=== PATIENT | male | born 1990 | race Caucasian/White ===

== ENCOUNTER 2019-10-20 11:47 | Outpatient (REF) | payer BC, SELFPAY ==
[2019-10-20 13:31] LABS: TSH (W/Ref FT4) 1.63 uIU/mL (0.36-3.74)
[2019-10-20 14:28] LABS: Vitamin D 25 Total 17.3 ng/ml (30-100)
[2019-10-22 12:37] LABS: Testosterone, Total 471 ng/dL (240-950)
== END 2019-10-20 12:07 ==
LOC: NCHCN 11:47
PROVIDERS: PCP Nurse Practitioner; Visit Provider Nurse Practitioner Family
DX: R53.83 Other fatigue (principal); R68.82 Decreased libido
CPT/HCPCS: 82306; 84403; 84443

== ENCOUNTER 2020-03-16 09:12 | Outpatient (CLI) | payer BC, SELFPAY ==
[2020-03-19 00:18] LABS: SARS-CoV-2 RNA Undetected (Undetected); SARS-CoV-2 Specimen Source Nasopharynx
== END 2020-03-16 09:32 ==
LOC: NCHCO 09:40 → LBO 03-18 08:01
PROVIDERS: PCP Nurse Practitioner; Visit Provider Nurse Practitioner Family
DX: Z11.59 Encounter for screening for other viral diseases (principal)
CPT/HCPCS: U0003

== ENCOUNTER 2020-12-24 18:44 | Outpatient (REF) | payer MEDICAID, SELFPAY ==
[2020-12-24 20:04] LABS: ALT 30 U/L (16-63); AST 18 U/L (15-37); Calculated LDL 159 mg/dL (<100); Cholesterol 248 mg/dL (<200); HDL Cholesterol 43 mg/dL (40-60); Triglyceride 233 mg/dL (<150)
[2020-12-27 05:41] LABS: Vitamin D 25 Total 23.5 ng/mL (30-100)
== END 2020-12-24 18:45 | disposition home or self-care (01) ==
LOC: NCHCN 18:44
PROVIDERS: PCP Nurse Practitioner; Visit Provider Nurse Practitioner Family
DX: Z13.220 Encounter for screening for lipoid disorders (principal); E66.3 Overweight; E55.9 Vitamin D deficiency, unspecified
CPT/HCPCS: 80061; 82306; 84450; 84460

== ENCOUNTER 2021-12-17 20:12 | Emergency (ER) | payer OTHER, SELFPAY ==
[2021-12-17 20:17] VITALS: BP 156/86; PULSE 92; RESP 16; TEMP 36.6; O2SAT 96
--- NOTE | 2021-12-17 20:30 | ED.GENADUL_ITS ---
Discharge Plan Disposition Patient Disposition: HOME Condition: Stable Discharge Details Clinical Impression: Gastroenteritis, Abdominal gas pain Primary Care Provider: Neli Francisco ED Provider: Eva Tracey Home Meds and New Rx's Prescriptions: New dicyclomine 20 mg tablet 20 mg PO TID PRN (Reason: abdominal distention) Qty: 10 0RF Rx Instructions: Take 3 times daily as needed for stomach cramps. Discharge Instructions Instructions: Gastroenteritis (ED), Abdominal Pain (ED) Additional Instructions: The CT today shows no evidence for appendicitis. You do have a large amount of abdominal gas on CT. He also have a little bit of bowel wall thickening. This could be caused by virus and/or inflammation. You may continue taking the simethicone if this helps with the gas pains. Also try the dicyclomine. Clear liquids for the next 1 to 2 days. [place] diet thereafter. Stay away from anything fried, fatty, spicy or dairy. Follow up with primary care provider in 3-5 days. Return to ED sooner if any worsening pain, vomiting, constipation, fever or concerns. Increase oral fluids. Please take Tylenol or Ibuprofen with food every 4-6 hours as needed for pain and swelling. Referrals: Neli Francisco [Primary Care Provider] - 5 days Discharge Data Discharge Date/Time-TO BE ENTERED AT DEPARTURE: 12/17/21 23:56 Medical Decision Making 31-year-old male presents to the ER with chief complaint of mid to right lower abdominal pain which began around 430. He did take some yet simethicone and calcium draq-nwe-kahuxuc tablet and then ate at [facility] suspecting gas which worsened his pain. No significant past medical history. Only surgical history is a vasectomy. Labs are largely unremarkable no leukocytosis., CMP largely within normal limits. No UTI. FINDINGS: Liver: No mass. Gallbladder and bile ducts: No calcified stones. No ductal dilation. Pancreas: No ductal dilation. No masses. Spleen: No splenomegaly or focal lesions. Adrenal glands: No mass. Kidneys and ureters: No renal masses or hydronephrosis bilaterally. Stomach and bowel: Predominantly gas-filled colon. No colitis or significant diverticular disease. Some loops of proximal small bowel demonstrate mild wall thickening however no pathologic dilation or focal transition points. This area is not well assessed due to motion. Appendix: Normal morphology of the appendix. Intraperitoneal space: No free air. No significant fluid collection. Vasculature: No abdominal aortic aneurysm. Lymph nodes: No significantly enlarged lymph nodes. Urinary bladder: Unremarkable as visualized. Reproductive: Unremarkable as visualized. Bones/joints: No acute fracture. Soft tissues: No suspicious lesions. IMPRESSION: No open discitis. A mild proximal enteritis is possible with clinical correlation necessary. Discussed CT results with patient who verbalized understanding. Instructed on attending mechanical expulsion of gas by rubbing belly and rolling back and forth on his abdomen. I also did give him some simethicone and dicyclomine prior to discharge. Discussed strict return instructions and follow-up care. Instructed to follow-up with PCP in 3 to 5 days. This text was generated using [employer] dictation system, please disregard any odd ities of phrase or misspellings. HPI General Mode of arrival: ambulatory . Date/Time Provider Initiated Documentation: 12/17/21 20:27 . Limitations to Documentation: no limitations . Information obtained by: patient, RN notes reviewed and old records reviewed . HPI Narrative: 31-year-old male presents to the ER with chief complaint of mid to right lower abdominal pain which began around 430. He did take some yet simethicone and calcium onlo-abt-wleeeye tablet and then ate at [facility] suspecting gas which worsened his pain. No significant past medical history. Only surgical history is a vasectomy. Related Data Home Medications Medication Instructions Recorded Confirmed dicyclomine 20 mg tablet 20 mg PO TID PRN #10 tab 12/17/21 Previous Rx's Medication Instructions Recorded dicyclomine 20 mg tablet 20 mg PO TID PRN #10 tab 12/17/21 Allergies Allergy/AdvReac Type Severity Reaction Status Date / Time No Known Allergies Allergy Unverified 12/17/21 20:20 General Stated Complaint: Abd Prob TONA: 3 PFSH All Active Problems (Updated 12/17/21 @ 23:29 by Eva Tracey) Elective sterilization (Acute) Gastroenteritis (Acute) Abdominal gas pain (Acute) Social History Smoking/Tobacco Use Status: Current every day Tobacco Type: smokeless tobacco Smoking risk assessment performed?: Yes Alcohol Intake: current Alcohol Intake frequency: 0-2 drinks per day Alcohol type: beer Drug use: Never Do you feel safe at home: Yes Do you feel safe in your relationship?: Yes Course Vital Signs Vital signs: Vital Signs Temperature 36.6 C 12/17/21 20:17 Pulse 92 H 12/17/21 20:17 Respiratory Rate 16 12/17/21 20:17 Blood Pressure 156/86 H 12/17/21 20:17 Pulse Oximetry 96 12/17/21 20:17 Temperature 36.6 C 12/17/21 20:17 Temperature Source Skin 12/17/21 20:17 Pulse 92 H 12/17/21 20:17 Respiratory Rate 16 12/17/21 20:17 Respiratory Effort Non-Labored 12/17/21 20:20 Blood Pressure 156/86 H 12/17/21 20:17 Pulse Oximetry 96 12/17/21 20:17 Pain Level 8 12/17/21 20:17 PAWSS Have you Been Recently Intoxicated or Drunk Within the Last 30 days?: No Have you Ever Experienced Previous Episodes of Alcohol Withdrawal?: No Have you ever Experienced Withdrawal Seizures?: No Have you ever Experienced Delirium Tremens(DT)s?: No Have you ever undergone Alcohol Rehabilitation Treatment (i.e, inpt ot outpatient treatment programs)?: No Have you ever Experienced Blackouts?: No Have you ever Combined Alcohol with other Downers within the last 90 days?: No Have you ever Combined Alcohol with any other Substance of Abuse during the last 90 days?: No Positive Blood Alcohol level on Presentation? [PCS.BAL]: No Evidence of Increased Autonomic Activity (i.e. HR>120, tremor, sweating, agitation, nausea)?: No Result: 0
[2021-12-17 20:57] LABS: Abs Immature Grans 0.02 10^3/uL (0.0-0.06); Absolute Basophil Count 0.05 10^3/uL (0.0-0.2); Absolute Eosinophil Count 0.17 10^3/uL (0.0-0.7); Absolute Lymphocyte Count 1.44 10^3/uL (1.2-3.4); Absolute Neutrophil Count 5.46 10^3/uL (1.2-6.7); Basophils % 0.7; Eosinophils % 2.2; HCT 42.3 % (40.0-50.0); HGB 14.1 g/dL (13.5-17.5); Immature Grans % 0.3; Lymphocytes % 18.8; MCH 28.8 pg (27.0-33.0); MCHC 33.3 % (32.0-36.0); MCV 86.5 fL (80-95); MPV 10.3 fL (8.0-11.0); Monocytes % 6.5; Neutrophils % 71.5; Nucleated RBC 0 %; Platelet Count 262 10^3/uL (130-400); RBC 4.89 10^6/uL (4.36-5.78); RDW 11.7 % (11.8-14.1); RDW-SD 37.2 fL; WBC 7.64 10^3/uL (4.4-10.8)
[2021-12-17 21:03] LABS: Bilirubin Negative (Negative); Blood Negative (Negative); Clarity Clear (Clear); Glucose Negative (Negative); Ketones Negative (Negative); Leukocyte Esterase Negative (Negative); Nitrite Negative (Negative)
[2021-12-17 21:10] LABS: ALT 26 U/L (16-63); AST 14 U/L (15-37); Albumin 3.9 g/dL (3.4-5.0); Alkaline Phosphatase 69 U/L (46-116); Anion Gap 7.1 mmol/L (3-11); BUN 9 mg/dL (7-18); Bilirubin, Total 0.4 mg/dL (0.2-1.0); CO2 28.9 mmol/L (21.0-32.0); Calcium 8.9 mg/dL (8.5-10.1); Chloride 106 mmol/L (98-107); Glucose 107 mg/dL (74-106); Lipase 77 U/L (73-393); Potassium 3.7 mmol/L (3.5-5.1); Sodium 142 mmol/L (136-145); Total Protein 7.3 g/dL (6.4-8.2)
[2021-12-17] MEDS: MORPHine 4 MG/ML SYR IVP (21:18)
[2021-12-17] MEDS: Ondansetron 4 MG/2 ML VIAL IVP (21:19)
--- NOTE | 2021-12-17 21:30 | DI.CT_ITS ---
Exam(s) CT ABDOMEN PELVIS W EXAM: CT ABDOMEN PELVIS W CLINICAL HISTORY: RLQ abd pain. TECHNIQUE: Imaging Protocol: Axial computed tomography images with coronal and sagittal reformatted images were created and reviewed CONTRAST MATERIAL: Intravenous: Omnipaque 350 Contrast volume:100 ml Oral: no COMPARISON: No exams were available for comparison FINDINGS: ABDOMEN: Exam somewhat limited by respiratory motion in the upper abdomen. Lung Bases: Normal where visualized. Liver: Normal density. No measurable mass. Gallbladder and biliary tract: No radiodense calculus or dilation. Pancreas: Normal density, no abnormal calcifications or inflammatory process. Spleen: Normal. Kidneys: Normal size, contour and axis. No radiodense stones or obstructive uropathy. No masses seen. Adrenal glands: No masses seen. Abdominal Aorta: Abdominal portion non-dilated. PELVIS: Bladder: No gross wall thickening. No calculi.No focal mass. Bowel: Proximal small bowel limited evaluation due to motion. Food and fluid seen within the stomach . Colon shows diffuse gaseous distension. Minimal stool. No wall thickening. No obstruction . Sarkis endix normal. Peritoneal cavity: No ascites, collection or mesenteric inflammatory response. Bones: Within normal limits for age. Reproductive organs: Within normal limits. Lymph nodes: Unremarkable. Impression: Colon gas distended without evidence wall thickening. Small bowel unremarkable. Appendix normal. RADIATION DOSE DELIVERED: 868.57mGy.cm Total DLP DATA REPOSITORY: All CT scans at this facility are submitted to the National Radiology Data Registry (NRDR) Dose Index Registry (DIR) with the [employer] (ACR). RADIATION OPTIMIZATION: All CT scans at this facility use at least one of these dose optimization te chniques: automated exposure control; mA and/or kV adjustment per patient size (includes targeted exa ms where dose is matched to clinical indication); or iterative reconstruction.
[2021-12-17] MEDS: Omnipaque 350 MG/ML 100 ML BTL IJ (22:08)
--- NOTE | 2021-12-17 23:06 | DI.VRAD_ITS ---
PROCEDURE INFORMATION: Exam: CT Abdomen And Pelvis With Contrast Exam date and time: 12/17/2021 22:07 Age: 31 years old Clinical indication: Other: Rlq abd pain; Additional info: PT stated symptoms since 1629 today TECHNIQUE: Imaging protocol: Computed tomography of the abdomen and pelvis with contrast. COMPARISON: No relevant prior studies available. FINDINGS: Liver: No mass. Gallbladder and bile ducts: No calcified stones. No ductal dilation. Pancreas: No ductal dilation. No masses. Spleen: No splenomegaly or focal lesions. Adrenal glands: No mass. Kidneys and ureters: No renal masses or hydronephrosis bilaterally. Stomach and bowel: Predominantly gas-filled colon. No colitis or significant diverticular disease. Some loops of proximal small bowel demonstrate mild wall thickening however no pathologic dilation or focal transition points. This area is not well assessed due to motion. Appendix: Normal morphology of the appendix. Intraperitoneal space: No free air. No significant fluid collection. Vasculature: No abdominal aortic aneurysm. Lymph nodes: No significantly enlarged lymph nodes. Urinary bladder: Unremarkable as visualized. Reproductive: Unremarkable as visualized. Bones/joints: No acute fracture. Soft tissues: No suspicious lesions. IMPRESSION: No open discitis. A mild proximal enteritis is possible with clinical correlation necessary. Dictated and Authenticated by: Sonia Tam MD. Ordering:BENSON Velasquez MD
[2021-12-17] MEDS: Dicyclomine 20 MG TAB PO (23:42)
[2021-12-17] MEDS: Simethicone 80 MG CHEW PO (23:42)
[2021-12-17 23:43] VITALS: BP 150/89; PULSE 94; RESP 16; O2SAT 96
== END 2021-12-17 23:56 | disposition home or self-care (01) ==
PROVIDERS: Emergency Provider Registered Nurse Emergency; PCP Nurse Practitioner
DX: K52.9 Noninfective gastroenteritis and colitis, unspecified (principal); R14.0 Abdominal distension (gaseous); R10.31 Right lower quadrant pain
CPT/HCPCS: 80053; 83690; 96374; 96375; 99285; 74177; 81003; 83735; 85025; 99284; J2270; J2405; J3490

== ENCOUNTER 2024-09-30 21:45 | Outpatient (REF) | payer OTHER, SELFPAY ==
--- OUTSIDE RECORDS SUMMARY | 2024-09-30 21:47 | XMS_ITS | Encounter Summary ---
Author Organization [place] [address] Care Team Providers Care Rolls Mill Operator Name Role Phone Unavailable Primary Care Provider Unavailabl e Encounter Details Date Type Department Care Team (Late st Contact Info) Description 02/01/2021 Abstract Dermatology at [address] [phone] Charla Tijerina, RN Social History Tobacco Use Types Packs/Day Years Used Date Smoking Tobacco: Never Assessed Sex and Gender Information Value Date Recorded Sex Assigned at Not on file Gender Identity Not on file Sexual Orientation Not on file documented as of this encounter Plan of Treatment Not on file documented as of this encounter Visit Diagnoses Not on filedocumented in this encounter
--- OUTSIDE RECORDS SUMMARY | 2024-09-30 21:47 | XMS_ITS | Encounter Summary ---
Author Organization [place] [address] Care Team Providers Care Counseling Services Director Name Role Phone Unavailable Primary Care Provider Unavailabl e Encounter Details Date Type Department Care Team ([facility] st Contact Info) Description 02/01/2021 Telephone Dermatology at [address] [phone] Lizzy Taylor MD [address] [place] [address] [place] [address] Social History Tobacco Use Types Packs/Day Years Used Date Smoking Tobacco: Never Assessed Sex and Gender Information Value Date Recorded Sex Assigned at Not on file Gender Identity Not on file Sexual Orientation Not on file documented as of this encounter Miscellaneous Notes * Telephone Encounter - Tatyana Quigley - 02/01/2021 10:25 AM EDT I contacted patient today and left a detailed message confirming 02/02 visit and confirming visit location. I left [phone] for call back if patient has any questions or needs to reschedule his appointment. documented in this encounter Plan of Treatment Not on file documented as of this encounter Visit Diagnoses Not on filedocumented in this encounter
--- OUTSIDE RECORDS SUMMARY | 2024-09-30 21:47 | XMS_ITS | Encounter Summary ---
Author Organization [facility] [place] [address] Care Team Providers Care Jewelry Manager Name Role Phone Unavailable Primary Care Provider Unavailabl e Encounter Details Date Type Department Care Team (Late st Contact Info) Description 02/02/2021 Abstract Dermatology at [address] [phone] Charla Tijerina, RN Social History Tobacco Use Types Packs/Day Years Used Date Smoking Tobacco: Every Day Cigarettes Smokeless Tobacco: Never Sex and Gender Information Value Date Recorded Sex Assigned at Not on file Gender Identity Not on file Sexual Orientation Not on file documented as of this encounter Plan of Treatment Not on file documented as of this encounter Visit Diagnoses Not on filedocumented in this encounter
--- OUTSIDE RECORDS SUMMARY | 2024-09-30 21:47 | XMS_ITS | Clinical Summary ---
Author Organization [facility] [place] [address] Care Team Providers Care Hardware Installation Coordinator Name Role Phone Unavailable Primary Care Provider Unavailabl e Allergies Active Allergy Reactions Criticality Noted Date Comments Cat Dander 02/01/2021 Medications Medication Sig Dispensed Refills Start Date End Date Status Omeprazole Magnesium 10 mg Susp,Delayed Release for Recon Take 10 mg by mouth daily. Active Active Problems Problem Noted Date Diagnosed Date Adjustment disorder with anxiety 02/01/2021 Pain of hand 02/01/2021 Attention deficit hyperactivity disorder (ADHD) 02/01/2021 Cigarette smoker 02/01/2021 Depression with anxiety 02/01/2021 Lower back pain 02/01/2021 Skin lesion 02/01/2021 Overview (02/01/2021): Flaking skin right hoahaoism Vitamin D deficiency 02/01/2021 Heartburn 02/01/2021 Overweight 02/01/2021 Family History Medical History Relation Comments Alcohol Use Disorder Father Heart Disease Father Hyperlipidemia Father Depression Mother Relation Status Comments Father Alive Mother Alive Social History Tobacco Use Types Packs/Day Years Used Date Smoking Tobacco: Every Day Cigarettes Smokeless Tobacco: Never Sex and Gender Information Value Date Recorded Sex Assigned at Not on file Gender Identity Not on file Sexual Orientation Not on file Plan of Treatment Health Maintenance Due Date Last Done Comments HIV screen 2008 Hepatitis C Screening 2008 Lipid Screening 2008 Hepatitis B vaccine (0-59 yrs) (1) 2009 Tetanus/Diphtheria/Pertussis Vaccines (1 - Tdap) 04/19 Covid-19 Vaccine (1 - season) 2024 Influenza (Flu) vaccine (1 o f 1 - Influenza standard series) 05/25/2024
--- OUTSIDE RECORDS SUMMARY | 2024-09-30 21:47 | XMS_ITS | Encounter Summary ---
Author Organization [facility] [place] [address] Care Team Providers Care Lei Seller Name Role Phone Unavailable Primary Care Provider Unavailabl e Reason for Visit * Reason Comments Skin Lesion face * Consultation (Routine) - Closed Specialty Diagnoses / Procedures Referred By Kvng estrada Referred To Contact Dermatology Diagnoses Disorder of the skin and subcutaneous tissue, unspecified Skin Lesion; New Patient-Notes Received Procedures Consult Deepthi Luis APRN [address] [place] [address] Lizzy Taylor MD [address] [place] [id number] Referral ID Status Reason Start Date Expiration Date V isits Requested Visits Authorized [id number] Closed Consult, Test & Treat PCP Updated and/or Approved 12/24/2020 12/24/2021 12 12 Encounter Details Date Type Department Care Team ([facility] st Contact Info) Description 02/02/2021 9:30 AM EDT Office Visit Dermatology at [address] [place] [address] Lizzy Taylor MD [address] [place] [id number] Seborrheic keratoses; Actinic skin damage Social History Tobacco Use Types Packs/Day Years Used Date Smoking Tobacco: Every Day Cigarettes Smokeless Tobacco: Never Sex and Gender Information Value Date Recorded Sex Assigned at Not on file Gender Identity Not on file Sexual Orientation Not on file documented as of this encounter Progress Notes * Lizzy Taylor MD - 02/02/2021 9:30 AM EDT Images from the original note were not included. DERMATOLOGY - NEW PATIENT NOTE Date of service: 02/02/2021 Gomez Dale : 1990, 30 y.o. Chief Complaint: spot on left scientology HPI: Gomez Dale is a 30 y.o. male referred by Deepthi Luis with the following concerns: Spot on left scientology for one year not changing, not symptomatic, never treated. Relevant Skin History: - Skin cancer (including type): denies Family History: Melanoma: denies Relevant Social History: - 1/2 ppd smoker, works for [employer] Meds: Current Outpatient Medications Medication Sig Dispense Refill ??? busPIRone (Buspar) 5 mg Tablet Take 5 mg by mouth 3 times daily. ??? Omeprazole Magnesium 10 mg Susp,Delayed Release for Recon Take 10 mg by mouth daily. No current facility-administered medications for this visit. Allergies: Allergies Allergen Reactions ??? Cat Dander Review of Systems: - General: Feels well. - Skin: No other skin concerns. Examination: - Constitutional: Patient was alert, well-appearing and in no noticeable distress. - Skin: Skin examination of the face, right and left upper extremities, Diagnosis/Skin findings/Assessment/Plan: 1. Seborrheic Keratosis [Verrucous and pebbly, stuck-on alas to brown papules and plaques located on right scientology] - benign, hereditary nature of this condition reviewed, reassurance provided - no treatment indicated at this time - patient instructed to return to clinic if any lesions change or become symptomatic 2. Actinic Skin Damage - chronic illness, stable - sun protection reviewed (broad spectrum sunscreen with SPF30+, sun avoidance, protective UPF clothing) and skin cancer warnings - risks of change discussed, patient reminded to look for new lesions or concerning changes - risk of actinic damage predisposing patient to increased SCC risk discussed with the patient. Significant risks with regards to morbidity and mortality for high risk SCCs reviewed with patent - need for regular skin exams reviewed RTC: PRN Note initiated by Lizzy Taylor MD. Reviewed and signed by Lizzy Taylor MD Department of Dermatology [facility] documented in this encounter Plan of Treatment Not on file documented as of this encounter Visit Diagnoses Diagnosis Seborrheic keratoses Actinic skin damage Other chronic dermatitis due to solar radiation documented in this encounter
--- OUTSIDE RECORDS SUMMARY | 2024-09-30 21:47 | XMS_ITS | Continuity of Care Document ---
Author Name [facility] Organization [facility] Care Team Providers Care System Manager Name Role Phone [facility] Unavailable Unavailable Problems Combined list of problems from Department of Defense and Veterans Affairs facilities. It does not include entries that were removed or entered in error. Problem Status Onset Date Problem Type Date of Resolution Comments Source attention-deficit hyperactivity disorder Active Condition DoD attention-deficit / hyperactivity disorder Active Condition DoD visit for: administrative purpose Active Condition DoD adjustment disorder with anxiety and depressed mood Active Condition DoD depression Active Condition DoD pain in the hands Active Condition DoD common cold Inactive Condition DoD smoking cigarettes Active Condition DoD visit: ears/hearing exam for hearing conservation, treatment Active Condition DoD visit for: services physical accession Active Condition DoD adjustment disorder with anxiety Active Condition DoD ankle sprain Inactive Condition DoD psychiatric diagnosis or condition deferred on axis I Active Condition DoD throat pain Active Condition DoD compression arthralgia - hand Active Condition DoD cough Active Condition DoD nasal discharge Active Condition DoD backache Active Condition DoD lower back pain Active Condition DoD refractive error Active Condition [facility] visit for: services physical Active Condition DoD Need For Vaccination Against Bacterial Diseases Active Condition DoD Need For Vaccination Against Viral Diseases Inactive Condition DoD Vaccines Prophylactic Need Active Condition DoD Need For Vaccination Against Combinations Of Diseases Active Condition [facility] visit for: ears / hearing exam Active Condition [facility] assessment of patient condition work-related Active Condition [facility] visit for: screening exam pulmonary tuberculosis Active Condition DoD limb pain Inactive Condition Pt with likely muscle strain. Reviewed films with radiologist cristopher Horvath as directed. Ice packs after use. F/U PRN. DoD No Known Problems Active Condition [facility] Medications Combined list of outpatient medications from Department of Defense and Veterans Affairs facilities.Medications provided include 1) outpatient medications from the last 15 months, and 2) patient-reported medications. Medication Details Route Status Patient Instructions Prescription Expires Prescription Number Last Dispense Date Ordering Provider Order Date Order Qty Source No Known Medications No Known Medicati ons complet ed Ambulat ory Pharmac y Allergies, Adverse Reactions, Alerts Combined list of allergies from Department of Defense and Veterans Affairs facilities. It does not include entries that were removed or entered in error. Substance Category Reaction Severity Reaction type Status Date Reported Comments Source No Known Allergies Drug allergy (disorder) active 05/26/2005 GAUDENCIO Herman [place] Immunizations Combined list of available immunizations from the Department of Defense and Veterans Affairs facilities. Immunization Series Date Given Administered By Site Reaction Lot Number CVX Code Drug Bi Architect Status Comments Source influenza virus vaccine,split 2009 [id number] 15 Unknown complet ed influenza virus vaccine,s plit 02/03/10 Given Ambulat ory Pharmac y Novel influenza-H1N 1-09, injectable 2009 [id number] 1 127 Novartis Anchovi Labstica ls complet ed Novel influenza -[id number], injectabl e 02/03/10 Given Ambulat ory Pharmac y hepatitis A adult vaccine 2009 [id number] 52 GlaxoSmithKli ne complet ed hepatitis A adult vaccine 02/03/10 Given Ambulat ory Pharmac y meningococcal A,C,Y,W-135 (MCV4P) 2009 [id number] GlaxoSmithKli ne complet ed meningoco ccal A,C,Y,W-1 35 (MCV4P) 02/01/10 Given Ambulat ory Pharmac y tetanus, diphtheria, acellular pertu is 2009 [id number] sanofi pasteur complet ed tetanus, diphtheri a, acellular pertussis 02/01/10 Given Ambulat ory Pharmac y tuberculin purified protein derivative 2009 [id number] 96 GlaxoSmithKli ne complet ed tuberculi n purified protein derivativ e 02/01/10 Given Ambulat ory Pharmac y poliovirus vaccine, inactivated 2009 [id number] 10 sanofi pasteur complet ed polioviru s vaccine, inactivat ed 02/01/10 Given Ambulat ory Pharmac y hepatitis A-hepatitis B vaccine 2008 [id number] 104 GlaxoSmithKli ne complet ed hepatitis A-hepatit is B vaccine 02/08/09 Given Ambulat ory Pharmac y poliovirus vaccine, inactivated 2008 [id number] 10 sanofi pasteur complet ed polioviru s vaccine, inactivat ed 02/08/09 Given Ambulat ory Pharmac y meningococcal A,C,Y,W-135 (MCV4P) 2008 [id number] 114 sanofi pasteur complet ed meningoco ccal A,C,Y,W-1 35 (MCV4P) 02/08/09 Given Ambulat ory Pharmac y tuberculin purified protein derivative 2008 [id number] 96 sanofi pasteur complet ed tuberculi n purified protein derivativ e 02/08/09 Given Ambulat ory Pharmac y tetanus, diphtheria, acellular pertu is 2008 [id number] 115 ArchitizerKli ne complet ed tetanus, diphtheri a, acellular pertussis 02/08/09 Given Ambulat ory Pharmac y measles, mumps and rubella virus vaccine 1 2008 UNK 03 Unknown (UNK) Not Given measles, mumps and rubella virus vaccine DoD poliovirus vaccine, inactivated 1 2008 [id number] 10 Sanofi Pasteur (PMC) complet ed polioviru s vaccine, inactivat ed DoD varicella virus vaccine 1 2008 UNK 21 Unknown (UNK) Not Given varicella virus vaccine DoD hepatitis A and hepatitis B vaccine 1 2008 [id number] [id number] 104 SmithKline (SKB) complet ed hepatitis A and hepatitis B vaccine DoD meningococcal polysaccharid e (groups A, C, Y and W-135) diphtheria toxoid conjugate vaccine (MCV4P) 1 2008 [id number] 114 Sanofi Pasteur (PMC) complet ed meningoco ccal polysacch aride (groups A, C, Y and W-135) diphtheri a toxoid conjugate vaccine (MCV4P) DoD tetanus toxoid, reduced diphtheria toxoid, and acellular pertu is vaccine, adsorbed 1 2008 [id number] 115 Smithine (SKB) complet ed tetanus toxoid, reduced diphtheri a toxoid, and acellular pertussis vaccine, adsorbed DoD Vital Signs Combined list of inpatient and outpatient Vital Signs from Department of Defense and Veterans Affairs, ranging from 12 months to all on record, depending upon the facility. Vital Sign Value Date Comments Source Systolic Blood Pressure 120mm[Hg] 06/06/2024 10:43:00 Ambulatory Pharmacy Diastolic Blood Pressure 82mm[Hg] 06/06/2024 10:43:00 Ambulatory Pharmacy Peripheral Pulse Rate 97bpm 06/06/2024 10:43:00 Ambulatory Pharmacy Encounters Combined list of: 1) Encounters from Department of Veterans Affairs facilities going back up to thelast 18 months. 2) Encounters from the Department of Defense facilities going back up to 280 months. Location Location Details Encounter Type Encounter Number Reason For Visit Attending Provider ADM Date DC Date Status Disposition Source [place], [place](Family Medicine OP Care) OUTPATIENT [id number] JUANPABLO Mcqueen SHANTHI YOU 10/27 Released w/o Limitations [place](Fami ly Medicin e OP Care) [employer](IEP Hearing Conservat ion) OUTPATIENT [id number] NINI DELGADO 02/04 Released w/o Limitations [employer](I EP Hearing Conserv ation) [facility](ROHIT C Post Immunizat ion) OUTPATIENT [id number] IET PPD EDELMIRA JOHNSON 02/05 Released w/o Limitations [facility](M AHC Post Immuniz ation) [facility](ROHIT C Post Immunizat ion) OUTPATIENT [id number] IET IMMUNIZ ATIONS GAURANG SANFORD 02/08 Released w/o Limitations [facility](M AHC Post Immuniz ation) [facility](PES Optometry -Trainee) OUTPATIENT [id number] JIGNESH CLEANING 02/09 Released w/o Limitations [facility](P ES Optomet ry-Enoch nee) [facility] [employer]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[facility]) OUTPATIENT [id number] EVARISTO REAGAN 02/17 Immediate Referral [facility](F [facility] Athleti Tut[place]iler [facility]) [facility] Ambulator y) OUTPATIENT [id number] KENISHA OLMOS 02/17 Released w/o Limitations [facility](T MC Ambulat ory) [facility] Ambulator y) OUTPATIENT [id number] HIREN BRICEÑO 02/18 Immediate Referral [facility](T MC Ambulat ory) [facility] Ambulator y) OUTPATIENT [id number] Right Hand pain ALVA WEBBER 02/27 Released with Work/Duty Limitations [employer](T MC Ambulat ory) [facility] Ambulator y) OUTPATIENT [id number] WILL SEGAL 03/02 Released with Work/Duty Limitations [facility] [facility](T MC Ambulat ory) [place] OUTPATIENT [id number] MED SCREENMULUGETA GARZON 02/01 Released w/o Limitations [place] Optometry ) OUTPATIENT [id number] SHANTHI YEN 02/01 Released w/o Limitations [place] Optomet [place]) OUTPATIENT [id number] hearing test ZBIGNIEWALEENAJamel Jones 02/02 Released w/o Limitations [place] ) [place]) OUTPATIENT [id number] IMM DOMITILA VEGA 02/03 Released w/o Limitations [place] [place] [facility] OUTPATIENT [id number] [facility] S LILIBETH DRAPER S 02/11 Released w/o Limitations [place] [facility] OUTPATIENT [id number] [facility] LILIBETH DRAPER S 02/14 Released w/o Limitations [place] [facility] OUTPATIENT [id number] medical assesme nt ARNIE REINA 03/04 Released w/o Limitations [place] [facility] No Facility Access History [id number] 33875 12/18 No Facilit y Access [facility]ulator [facility] [id number] 12/18 Ambulat ory Pharmac y [address] [place] Outside Documentat ion Only [id number] 12/18 Discharge Disposition: Home or Self Care [address] [place] [address] [place] [facility] [id number] 06/06 Discharge Disposition: Home or Self Care [address] [facility] Procedures Combined list of: 1) Procedures from Department of Veterans Affairs facilities going back up to thelast 18 months, not all VA non-surgical procedures are included; 2) All procedures from the Department of Defense facilities. Procedure Procedure Type Code Date Perfomer Comments Sourbraydon e INCISION AND DRAINAGE OF ABSCESS (EG, CARBUNCLE, SUPPURATIVE HIDRADENITIS, CUTANEOUS OR SUBCUTANEOUS ABSCESS, CYST, FURUNCLE, OR PARONYCHIA); SIMPLE OR SINGLE 005 [facility] ENVIRONMENTAL INTERVENTION FOR MEDICAL MGMT PURPOSES ON A PSYCHIATRIC PATIENT'S BEHALF WITH AGENCIES, EMPLOYERS, OR INSTITUTIONS [facility] ATHLETIC TRAINING EVALUATION [facility] VIS FUNCT SCREEN,AUTOMAT/SE ND-AUTOMAT BILAT QUANT DETERM VISUAL ACUITY,OCULAR ALIGN,COLOR VISION,PSEUDOISOC HROMAT PLATES,& FIELD VIS (MAY INC ALL/SOME SCRN DETERM FOR CONTRAST SENSITIV,VIS UND GLARE) [facility] TETANUS, DIPHTHERIA TOXOIDS AND ACELLULAR PERTUSSIS VACCINE (TDAP), WHEN ADMINISTERED TO INDIVIDUALS 7 YEARS OR OLDER, FOR INTRAMUSCULAR USE [facility] SKIN TEST; TUBERCULOSIS, INTRADERMAL [facility] ANALYSIS OF CLINICAL DATA STORED IN COMPUTERS (EG, ECGS, BLOOD PRESSURES, HEMATOLOGIC DATA) [facility] GROUP PSYCHOTHERAPY (OTHER THAN OF A MULTIPLE-FAMILY GROUP) [facility] GROUP PSYCHOTHERAPY (OTHER THAN OF A MULTIPLE-FAMILY GROUP) [facility] GROUP PSYCHOTHERAPY (OTHER THAN OF A MULTIPLE-FAMILY GROUP) [facility] PREPARATION OF REPORT OF PATIENT'S PSYCHIATRIC STATUS, HISTORY, TREATMENT, OR PROGRESS (OTHER THAN FOR LEGAL OR CONSULTATIVE PURPOSES) FOR OTHER INDIVIDUALS, AGENCIES, OR INSURANCE CARRIERS [facility] GROUP PSYCHOTHERAPY (OTHER THAN OF A MULTIPLE-FAMILY GROUP) [facility] PSYCHIATRIC DIAGNOSTIC INTERVIEW EXAMINATION [facility] SKIN TEST; TUBERCULOSIS, INTRADERMAL [facility] AUDIOMETRIC TESTING OF GROUPS [facility] VIS FUNCT SCREEN,AUTOMAT/SE ND-AUTOMAT BILAT QUANT DETERM VISUAL ACUITY,OCULAR ALIGN,COLOR VISION,PSEUDOISOC HROMAT PLATES,& FIELD VIS (MAY INC ALL/SOME SCRN DETERM FOR CONTRAST SENSITIV,VIS UND GLARE) 010 [facility] Psychotherapy Group Interview Psychotherapy Group Interview [id number] [phone] JOHANNA CHATMAN [facility] Psychotherapy Group Interview Psychotherapy Group Interview [phone] JOHANNA CHATMAN [facility] Psychotherapy Group Interview Psychotherapy Group Interview [id number] JOHANNA CHATMAN [facility] Psychiatric Therapy Preparation of Psychiatric Status Report Psychiatric Therapy Preparation of Psychiatric Status Report [id number] DOMINICK ORELLANA [facility] Psychotherapy Individual Approx 30 Min W/ Medical Evaluation & Management Psychotherapy Individual Approx 30 Min W/ Medical Evaluation & Management [phone] DOMINICK ORELLANA [facility] Psychotherapy Group Interview Psychotherapy Group Interview [phone] NAIDA WALTER [facility] Psychiatric Diagnostic Evaluation Comprehensive Examination Psychiatric Diagnostic Evaluation Comprehensive Examination [id number] JOHANNA CHATMAN [facility] Injection, penicillin G benzathine, up to 1,200,000 units DOMITILA VEGA [facility] Hep A Vac Ped/Adol Dosage (Intramusc Use) 2 Dose Schedule Hep A Vac Ped/Adol Dosage (Intramusc Use) 2 Dose Schedule 02505 DOMITILA VEGA [facility] Vaccines Viral Polio, Inactivated Vaccines Viral Polio, Inactivated 32051 DOMITILA VEGA [facility] Influenza Virus Vaccine Pandemic Formulation Influenza Virus Vaccine Pandemic Formulation 63571 DOMITILA VEGA [facility] Tdap Vaccine Tdap Vaccine 91552 DOMITILA VEGA [facility] Influenza Virus Vaccine Intranasal Live Attenuated DOMITILA VEGA [facility] Influenza Virus Vaccine Pandemic Formulation H1N1 Administration Influenza Virus Vaccine Pandemic Formulation H1N1 Administration 62296 DOMITILA VEGA [facility] Meningococcal Polysaccharide Diphtheria Toxoid Conjugate Vaccine DOMITILA VEGA [facility] Immunization Administration By Injection, Each Additional Vaccine DOMITILA VEGA [facility] Immunization Admin By Intranasal / Oral Route One Vaccine Immunization Admin By Intranasal / Oral Route One Vaccine 54347 DOMITILA VEGA [facility] Physician Supervised Injection Intramuscular Antibiotic Physician Supervised Injection Intramuscular Antibiotic 26837 DOMITILA VEGA [facility] Venipuncture Venipuncture 59995 DOMITILA VEGA [facility] Skin Test Anergy Tuberculin Intradermal Skin Test Anergy Tuberculin Intradermal 75384 DOMITILA VEGA [facility] Audiometry Group Testing Audiometry Group Testing 61509 JUAN COY [facility] Visual Function Screening Visual Function Screening 10308 SHANTHI YEN [facility] Psychiatric Therapy Environmental Intervention Psychiatric Therapy Environmental Intervention 26242 JESÚS JO It was recommended to Command that pt be placed on Wily Watch with no access to sharps; and that cadre dispense meds. [facility] Psychotherapy Individual Approximately 30 Minutes Psychotherapy Individual Approximately 30 Minutes [id number] JESÚS JO Pt seen as an emergency walk-in from 9:00 to 9:30 as an emergency walk-in. [facility] Athletic Training Evaluation Athletic Training Evaluation [phone] EVARISTO REAGAN [facility] Visual Function Screening Visual Function Screening [id number] 009 JIGNESH CLEANING [facility] Tdap Vaccine Tdap Vaccine 74597 [facility] Vaccines Viral Polio, Inactivated Vaccines Viral Polio, Inactivated 62346 [facility] Meningococcal Polysaccharide Diphtheria Toxoid Conjugate Vaccine [facility] Immunization Administration By Injection, Each Additional Vaccine [facility] Hepatitis A And Hepatitis B (Intramuscular Use) Adult Dosage Hepatitis A And Hepatitis B (Intramuscular Use) Adult Dosage 07743 [facility] Immunization Administration By Injection, One Vaccine Immunization Administration By Injection, One Vaccine 73682 [facility] Threshold Audiogram (Pure Tone) Threshold Audiogram (Pure Tone) 05946 NINI DELGADO [facility] Audiometry Group Testing Audiometry Group Testing 34615 NINI DELGADO [facility] Physician Supervised Group Educational Services NINI DELGADO [facility] Special Physician Services Analysis Of Computerized Data Special Physician Services Analysis Of Computerized Data 18463 DANNYNINI [facility] Ear mold/insert, not disposable, any type NINI DELGADO [facility] Ear Protector Attenuation Measurements Ear Protector Attenuation Measurements 03505 DANNYNINI [facility] Skin Test Anergy Tuberculin Intradermal Skin Test Anergy Tuberculin Intradermal 24614 ANANYA ROSEN [facility] Immunization Administration By Injection, One Vaccine Immunization Administration By Injection, One Vaccine 66978 JESSIKAANANYA [facility] No data available for this section Ambul[facility] ry Pharmacy Social History Combined list of available smoking, tobacco, and other social history from Department of Defense and Veterans Affairs facilities. Social History Type Response Date Comment [facility] e This section is an empty social history section. [facility] Tobacco Cigarette use: Former-cigarette user. Average PACKS per day: (10 cigarettes = 0.5 packs) 0.5. Total years of smoking cigarettes: 10. *Total pack years (*reqd for current/former users to complete the Rec. Packs/day times total years) 5. *Stopped cigarettes age (*required for former users to complete the Recommendation) 25 Years. Other Tobacco use: Never-other tobacco user (not cigarettes). Ambulatory Pharmacy Sexual Orientation Ambula tory Pharmacy Gender identity Ambulator y Pharmacy Male Ambulatory Pha rmacy Assessment and Plan Combined list of future care activities from Department of Defense and Veterans Affairs facilities (e.g., assessment and plan notes, appointments, orders, and referrals). Additional future care activities may be listed in the Plan of Care section. Result Assessment and Plan Date Source Assessment and Plan Extracted from:Title : Education Note Author: JONAS ANTHONY Date: 06/06/24 10/01/2024 Ambulatory Pharmacy Functional Status Combined list of recent functional and cognitive assessments recorded at [facility] [place] Functional Chestnut Measurement (FIM) Scale: 1 = Total Assistance (Subject = 0% +), 2 = Maximal Assistance (Subject = 25% +), 3 = Moderate Assistance (Subject = 50% +), 4 = Minimal Assistance (Subject = 75% +), 5 = Supervision, 6 = Modified Chestnut (Device), 7 = Complete Chestnut (Timely, Safely). Assessment Date/Time Source Assessment Type Assessment Skill Assessment Score Assessment Details No data available for this section
--- OUTSIDE RECORDS SUMMARY | 2024-09-30 21:48 | XMS_ITS | Data Portability ---
Author Organization [place] - [facility] [place] [address] Assessment No assessment recorded. Plan of Treatment Reminders Order Date Submit Date Provider Last Modified By Organization Details Last Modified Time Details Appointments Annual Wellness Exam 40 2024 02:20P M JEREMIAH LUIS, Not available Not available Not available Annual Wellness Exam 40 2025 02:20P M JEREMIAH LUIS, Not available Not available Not available Lab None recorded. Referral None recorded. Procedures None recorded. Surgeries None recorded. Imaging None recorded. Medication Orders None recorded. Patient TargetsNo targets recorded. Patient InstructionsNo instructions recorded. Reason for Referral None Reported. Results Created Date Observation Date Name Description Value Unit Range Abnormal Flag Note LastModifiedBy Organization Detail LastModifiedTime 06/09/20 24 12/18/2021 imagi ng/di agnos tic resul t No observ ation record ed. [email or web address] Not Available 06/09 03:51:26 06/09/20 24 12/17/2021 imagi ng/di agnos tic resul t No observ ation record ed. [email or web address] Not Available 06/09 03:51:35 Result Notes None recorded. 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 Problem Code: R51; Problem Code Type: ICD-10; Not Available [facility] 3 05:12:36 Adult health examinat ion Active 201712/29/19 21 - Comments only - Jeremiah RILEY - Gomez is here today for annual exam. He has recently started a new job which is going well. He is up to date on tetanus vaccinat ion. He does not have any concerns but would like his choleste rol checked. Problem Code: Z00.00; Problem Code Type: ICD-10; Not Available [facility] 3 05:12:36 Anxiety 41213144 Active 201712/29/19 21 - Comments only - Jeremiah MADERAP - Stable per patient. Problem Code: F41.8; Problem Code Type: ICD-10; Not Available [facility] 3 05:12:36 Heartbur n 65563885 Active 201712/29/19 21 - Comments only - Jeremiah RILEY - No change made to omeprazo le. Problem Code: R12; Problem Code Type: ICD-10; Not Available [facility] 3 05:12:36 Reduced libido 0084403 Active 2019 Problem Code: R68.82; Problem Code Type: ICD-10; Not Available [facility] 3 05:12:36 Vitamin D deficien cy 87831840 Active 201912/29/19 21 - Comments only - Jeremiah RILEY - Vitamin D recheck at visit. Problem Code: E55.9; Problem Code Type: ICD-10; Not Available [facility] 3 05:12:36 Pain in finger of right hand 40477474046 9109 Active 201905/26/20 20 - Comments only - Daniela Hodges MD - Suspect posttrau matic arthriti s from crush injury. Reassure d no increase d risk of repeat fracture . Trial of heat, ice, OTC analgesi c includin g acetamin ophen up to 1 g 3 times daily. Problem Code: M79.644; Problem Code Type: ICD-10; Not Available [facility] 3 05:12:36 Hyperlip idemia screenin g Active 2020 Problem Code: Z13.220; Problem Code Type: ICD-10; Not Available [facility] 3 05:12:37 [place] ht 635226845 Active 2020 Problem Code: E66.3; Problem Code Type: ICD-10; Not Available [facility] 3 05:12:37 Disorder of skin and/or subcutan eous tissue 54949564 Active 202012/29/19 21 - Comments only - Jeremiah Young STAFFING PROGRAM MANAGER - Dry flaking lesion over the right voodoo. Minimall y concerni ng. Will persue non-bebeto gent evaluati on via dermatol ogy. Problem Code: L98.9; Problem Code Type: ICD-10; Not Available [facility] 3 05:12:37 Depressi ve disorder 07831260 Completed 200806/20/2023 Problem Code: 311; Problem Code Type: ICD-9; Not Available [facility] 3 05:12:43 Steriliz ation procedur e Completed 201711/15/2018 Problem Code: Z30.2; Problem Code Type: ICD-10; Not Available [facility] 3 05:12:45 Elevated blood-pr essure reading without diagnosi s of hyperten madhu 561216942 Completed 201703/13/2019 Problem Code: R03.0; Problem Code Type: ICD-10; Not Available [facility] 3 05:12:45 Major depressi on, single episode 79820117 Completed 200805/23/2018 Problem Code: F32.9; Problem Code Type: ICD-10; Not Available [facility] 3 05:12:49 Pain in thoracic spine 433787283 Completed 201803/13/2019 Problem Code: M54.9; Problem Code Type: ICD-10; Not Available [facility] 3 05:12:54 Pain of right knee joint 21884683069 4100 Completed 201602/27/2017 Problem Code: M25.561; Problem Code Type: ICD-10; Not Available [facility] 3 05:12:55 Tobacco use cessatio n educatio n Completed 201703/13/2019 Problem Code: Z71.6; Problem Code Type: ICD-10; Not Available [facility] 3 05:12:58 Adjustme nt disorder with depresse d mood 28612112 Completed 201706/20/2023 Problem Code: F43.21; Problem Code Type: ICD-10; Not Available [facility] 3 05:12:59 Acute upper respirat ory infectio n 04124135 Completed 201810/16/2019 Problem Code: J06.9; Problem Code Type: ICD-10; Not Available [facility] 3 05:12:59 Fatigue 69349126 Completed 201912/24/2020 Problem Code: R53.83; Problem Code Type: ICD-10; Not Available [facility] 3 05:13:00 Low back pain 454144414 Active 2023 OSVALDO TAVERAS [address], [place], [address] , [facility] 4 09:36:03 Problem Notes None recorded. Procedures Surgical History None recorded. Imaging Results Imaging Date Name Status LastModified by Organiz ation Details LastModified Time 12/18/2021 imaging/diag nostic result completed Information not available 06/09/2024 03:51:26 12/17/2021 imaging/diag nostic result completed Information not available 06/09/2024 03:51:35 Procedure Notes None recorded. Medical Equipment None Reported. Allergies No known drug allergies Medications Name Sig Start Date Stop Date Status Note LastModified by Organization Details LastModified Time buspirone 5 mg tablet TAKE 1 TABLET BY MOUTH EVERY 8 HOURS 05/26 completed Not Available Not Available Not Available Nicoderm CQ 21 mg/24 hr daily transderma l patch Apply 1 patch externall y daily to hairless area. Rotate skin sites 01/17 completed Not Available Not Available Not Available Phenergan 25 mg tablet 1TAB q 6 h 01/14 completed Not Available Not Available Not Available Nicoderm CQ 7 mg/24 hr daily transderma l patch Apply 1 patch externall y daily to hairless area. Rotate skin sites 01/17 completed Not Available Not Available Not Available omeprazole 10 mg capsule,de layed release TAKE 1 CAPSULE BY MOUTH EVERY DAY 03/13 completed Not Available Not Available Not Available IBU 600 mg tablet 1TAB tid 01/14 completed Not Available Not Available Not Available dicyclomin e 20 mg tablet Take 1 tablet by mouth three times a day as needed 3 times a day as needed for stomach cramps 03/13 completed Per ER visit on 2 Not Available Not Available Not Available Nicoderm CQ 14 mg/24 hr daily transderma l patch Apply 1 patch externall y daily to hairless area. Rotate skin sites 01/17 completed Not Available Not Available Not Available Tylenol 500 mg tablet 2TAB 09/30 completed Not Available Not Available Not Available hydroxyzin e HCl 25 mg tablet Take 1-2 tablets by mouth every 6 hours as needed for anxiety. 05/26 completed Not Available Not Available Not Available fluoxetine 20 mg capsule take 1 capsule by mouth once daily 10/15 completed Not Available Not Available Not Available loratadine 10 mg tablet Take 1 tab by mouth daily 03/13 completed Not Available Not Available Not Available nicotine 21mg/24hr- 14mg/24hr- 7mg/24hr daily transderm patches,se quentl Apply 1 patch externall y daily to hairless area. Rotate skin sites 06/05 completed Not Available Not Available Not Available Vitamin D3 25 mcg (1,000 unit) tablet Take 1 by mouth daily. 09/30 completed Not Available Not Available Not Available Wellbutrin XL 150 mg 24 hr tablet, extended release 1 tab daily 02/13 completed Not Available Not Available Not Available Prilosec 10 mg oral suspension ,delayed release 1 packet by mouth daily 2017 active Not Available Not Available Not Avai lable Vitals Date Recorded Body weight Body temperature Oxygen saturation Oxygen saturation in Arterial blood by Pulse oximetry Heart rate Respiratory rate Systolic blood pressure Diastolic blood pressure Provider Name and Address Organization Details Last Updated DateTime 4 64973.5 9 g 98 [degF] 96 % 96 % 73 /min 16 /min 122 mm[Hg] 80 mm[Hg] Evelyn Somers RN [facility] 4 11:35:24 Date Recorded Body temperature Oxygen saturation Oxygen saturation in Arterial blood by Pulse oximetry Heart rate Body weight Body mass index (BMI) Body height Systolic blood pressure Diastolic blood pressure Provider Name and Address Organization Details Last Updated DateTime 5 97.6 [degF] 97 % 97 % 90 /min 22614.6 6 g 27.8 kg/m2 168.91 cm 130 mm[Hg] 86 mm[Hg] Draleen Smith RN [facility] 5 15:26:58 Date Recorded Systolic blood pressure Diastolic blood pressure Provider Name and Address Organization Details Last Updated DateTime 09/30/2024 140 mm[Hg] 90 mm[Hg] OSVALDO TAVERAS [facility] [address], [place], [address], [facility] 09/30/2024 14:46:20 Social History Question Answer Notes LastModified by Organizat ion Details LastModified Time Tobacco Smoking Status Former Smoker Darleen Smith RN null, [facility] 09/30/2024 14:23:02 How Much Tobacco Do You Chew? 1/day Information not available 09/30/2024 Do You Or Have You Ever Used E-cigarettes Or Vape? Current User Of Electronic Cigarettes Information not available 09/30/2024 When Did You Quit Smoking? 6-10yearssince lastcigarette Information not available 09/30/2024 Would You Say That, In General, Your Health Is Good Information not available 09/30/2024 How Often Does Anyone, Including Family, Physically Hurt You? Never Information not available 09/30/2024 How Often Does Anyone, Including Family, Insult Or Talk Down To You? Never Information no t available 09/30/2024 How Often Does Anyone, Including Family, Threaten You With Harm? Never Information not available 09/30/2024 How Often Does Anyone, Including Family, Scream Or Curse At You? Never Information not available 09/30/2024 Within The Past 12 Months, You Worried That Your Food Would Run Out Before You Got Money To Buy More. Never True Information n ot available 09/30/2024 Within The Past 12 Months, The Food You Bought Just Didn't Last And You Didn't Have Money To Get More. Never True Information n ot available 09/30/2024 How Hard Is It For You To Pay For The Very Basics Like Food, Housing, Medical Care, And Heating? Would You Say It Is: Somewhat Hard Information not available 09/30/2024 In The Past 12 Months, Has Lack Of Reliable Transportation Kept You From Medical Appointments, Meetings, Work Or From Getting Things Needed For Daily Living? No Information not available 09/30/2024 What Is Your Housing Situation Today? I Have Housing. Information not available 09/30/2024 How Often In The Past Year Have You Used Marijuana (including Smoking, Vaping, Dabbing, Or Edibles)? Monthly Or Less Information not available 09/30/2024 How Often In The Past Year Have You Used Prescription Medications That Were Not Prescribed To You? Never Information n ot available 09/30/2024 How Often In The Past Year Have You Taken Your Own Prescription Medication More Than The Way It Was Prescribed Or For Different Reasons Than Its Intended Purpose? Never Information no t available 09/30/2024 How Often In The Past Year Have You Used Other Drugs (for Example, Heroin, Cocaine, Meth, Salvia, Inhalants)? Never Information not available 09/30/2024 Have You Ever Used IV Drugs? No Information not available 09/30/2024 Date Of Most Recent SBINS 09/30/2024 Information not available 09/30/2024 What Was The Date Of Your Most Recent Tobacco Screening? 09/30/2024 Information not available 09/30/2024 At What Age Did You Start Smoking Tobacco? 11 Information not available 09/30/2024 Do You Or Have You Ever Used Smokeless Tobacco? Currently Chews Tobacco Information not available 09/30/2024 Has Tobacco Cessation Counseling Been Provided? Yes Information not available 09/30/2024 On What Date Was Tobacco Cessation Counseling Provided? 09/30/2024 Information not available 09/30/2024 Do You Or Have You Ever Used Any Other Forms Of Tobacco Or Nicotine? Yes Information not available 09/30/2024 How Many Years Have You Used E-cigarettes Or Vape? 1 Information not available 09/30/2024 How Many Years Have You Used Smokeless Tobacco? 4 Information n ot available 09/30/2024 Sex: Male Functional Status None recorded. Mental Status None recorded. Family History Relationship Description Onset Age of this Age Resolved Age Notes LastModified by Organization Details LastModified Time Father No family history of respiratory disease [email or web address] Not available 2022 03:57:25 Notes:*Problem: Mother: Aliv e Father: Alive Sisters: 1 Brothers: 2 Children: 3 children Family History of: Hypertension: father Hyperlipidemia: father Coronary heart disease: no Diabetes mellitus: no Colorectal cancer: no Prostate cancer: no Alcoholism: father in recovery , mother Mental illness: mother has depression ; father w/ PTSD Medical History No medical history recorded. Immunizations Vaccine Type Date Status Note Provider Nam e and Address Organization Details Recorded Time Tdap 5 completed Not Available [facility] 08/03/2023 05:14:40 Influenza, split virus, quadrivalent, PF 0 completed Not Available [facility] 08/03/2023 05:14:40 Influenza, split virus, quadrivalent, preservative 8 completed Not Available [facility] 08/03/2023 05:14:41 COVID-19, mRNA, LNP-S, PF, 100 mcg/0.5mL dose or 50 mcg/0.25mL dose 1 completed Not Available [facility] 08/03/2023 05:14:41 COVID-19, mRNA, LNP-S, PF, 100 mcg/0.5mL dose or 50 mcg/0.25mL dose 1 completed Not Available [facility] 08/03/2023 05:14:41 pneumococcal polysaccharide PPV23 8 completed Not Available [facility] 08/03/2023 05:14:42 COVID-19, mRNA, LNP-S, PF, ivis-sucrose, 30 mcg/0.3 mL 5 completed Darleen Smith RN null, [facility] 09/30/2024 15:26:38 Influenza, split virus, trivalent, PF 5 completed Darleen Smith RN null, [facility] 09/30/2024 15:26:38 Tdap 5 completed Darleen Smith RN null, [facility] 09/30/2024 15:28:39 Past Encounters Encounter ID Performer Location Encounter Start Date Encounter Closed Date Diagnosis/Indication Diagnosis SNOMED-CT Code Diagnosis ICD10 Code Diagnosis Note [id number] OSVALDO TAVERAS [address] [address] 03/13/2024 10:48:16 03/13/2024 11:57:45 Low back pain 417375812 M54.50 03/13/2024: Patient has improving low back pain that has been present for 10 days. He can continue the use of ibuprofen and acetaminop hen favoring ibuprofen as it is likely to have more overall benefit. At this time he does not have insurance. PT is likely to be helpful, but likely not realistic due to cost. Recommend stretches and focus on core strengthen ing. No indication for imaging at this time. [id number] [facility] [address] [address] 09/30/2024 14:05:41 09/30/2024 15:31:31 Active or passive immunization 684514298 Z23 Adult heal th examination 075505883 Z00.00 Patient is here today for annual exam: COVID-19 VACCINATIO N: Administer ed today. FLU VACCINATIO N: Administer ed today. TETANUS VACCINATIO N: Administer ed today. COLONOSCOP Y: No known family history of colon cancer to suggest early screening. Vitamin D deficiency 347 32302 E55.9 Health Concerns Section Related Observation LastModified by Organization Detai ls LastModified Time None Recorded Concern Status LastModified by Organization Details LastModified Time None Recorded Advance Directives Directive None Recorded Payers Encounter Date Sequence Insurance Name Policy Number Policy Mcgraw Covered Member ID Mcgraw Member ID Guarantor Name 03/13/2024 1 *SELF PAY* Stan Dale Notes Date Note Type Note Provider Name and Address Organization Details Recorded Time 03/13/2024 text/html Gomez is here fo r lower back pain that started 10 days ago after lifting up on a plow. He states that the pain is improving and isolated to his lower back. He has been taking ibuprofen and acetaminophen with relief from the pain. He denies any bowel or bladder changes. He has no radiculopathy, numbness or tingling, coordination changes or bowel or bladder changes. JEREMIAH LUIS, OSVALDO [address], [place], [address], [facility]. 03/14/2024 09:37:49
[2024-09-30 22:04] LABS: HCT 46.5 % (40.0-50.0); HGB 15.8 g/dL (13.5-17.5); MCH 29.7 pg (27.0-33.0); MCV 87 fL (80-95); MPV 11.1 fL (8.0-11.0); Platelet Count 293 10^3/uL (130-400); RBC 5.32 10^6/uL (4.36-5.78); RDW 11.8 % (11.8-14.1); RDW-SD 37.7 fL; WBC 7.63 10^3/uL (4.4-10.8)
[2024-09-30 22:37] LABS: ALT 22 U/L (16-63); AST 19 U/L (15-37); Albumin 3.8 g/dL (3.4-5.0); Alkaline Phosphatase 75 U/L (46-116); Anion Gap 7.2 mmol/L (3-11); BUN 10 mg/dL (7-18); Bilirubin, Total 0.33 mg/dL (0.2-1.0); CO2 29.8 mmol/L (21.0-32.0); Calcium 9.6 mg/dL (8.5-10.1); Calculated LDL 159 mg/dL (<100); Chloride 106 mmol/L (98-107); Cholesterol 261 mg/dL (<200); Estimated GFR 101.28 (mL/min/1.73m2); Glucose 117 mg/dL (74-106); HDL Cholesterol 51 mg/dL (40-60); Sodium 143 mmol/L (136-145); Triglyceride 259 mg/dL (<150); Vitamin D 25 Total 11.4 ng/mL (30-100)
== END 2024-09-30 21:46 | disposition home or self-care (01) ==
LOC: NCHCN 21:45
PROVIDERS: Visit Provider Nurse Practitioner Family
DX: Z00.00 Encounter for general adult medical examination without abnormal findings (principal); E55.9 Vitamin D deficiency, unspecified
CPT/HCPCS: 80053; 80061; 82306; 85027